=== PATIENT | female | born 1955 | race Caucasian/White ===

== ENCOUNTER 2019-05-15 01:03 | Inpatient (IN) ==
[2019-05-15] MEDS ORDERED: ALBUTEROL NEB INH ONE (01:35)
[2019-05-15] MEDS ORDERED: SOLU-MEDROL IV ONE (01:35)
[2019-05-15] MEDS ORDERED: PULMICORT INH ONE (01:35)
[2019-05-15] MEDS ORDERED: DUONEB (A & A) INH ONE ×2 (01:35→05:19)
[2019-05-15 02:01] LABS: BASO# 0.03 X1000 (0.0-0.2); BASO% 0.7 % (0.0-0.8); EOS# 0.05 X1000 (0.0-0.7); EOS% 1.2 % (0.0-10.0); HEMATOCRIT 48.3 % (37.0-47.0); HEMOGLOBIN 15.7 g/dL (12.0-16.0); IMM GRAN# 0.01 X1000 (0.0-0.04); IMM GRAN% 0.2 % (0.0-0.5); LYMPH# 0.81 X1000 (1.2-3.4); LYMPH% 19.1 % (20.5-51.1); MCH 28.9 PG (27-31); MCHC 32.5 g/dL (33-37); MONO# 0.42 X1000 (0.11-0.59); MONO% 9.9 % (1.7-9.3); MPV 10.7 FL (7.4-10.4); NEUT# 2.92 X1000 (1.4-6.5); NEUT% 68.9 % (42.2-75.2); PLT 133 X1000 (130-400); RBC 5.43 XMIL (4.2-5.4); RDW 13.6 % (11.5-14.5); WBC 4.24 X1000 (4.8-10.8)
[2019-05-15 02:09] LABS: BE 5.9 mmoll (-3.0-3.0); BLOOD TYPE ARTERIAL; HCO3-(ACT) 29.5 mmoll (20.0-26.0); METHB 0.7 % (0.0-1.5); O2(CT) 21.9 mL/dL (15.0-23.0); O2HB 95.7 % (95.0-99.0); PO2(98.6) 169 mmHg (60-100); SAMPLE BLOOD; SAO2 97.5 % (95.0-100.0); THB 16.1 g/dL (11.5-17.4); pH(98.6) 7.39 (7.35-7.45)
[2019-05-15 02:14] LABS: ALLEN TEST YES; MODALITY CANNULA; PCO2(98.6) 54 mmHg (35-45)
[2019-05-15 02:45] LABS: AGAP 11; ALBUMIN 4.6 g/dL (3.5-5.0); ALKALINE PHOSPHATASE 99 U/L (32-104); BUN 16 mg/dL (8-22); CALCIUM 9.3 mg/dL (8.8-10.2); CHLORIDE 101 mmol/L (98-107); COSMO 285; CREATININE 0.6 mg/dL (0.5-0.9); ESTIMATED GFR > 60; GLUCOSE 139 mg/dL (70-104); GOT 16 U/L (10-30); GPT 13 U/L (10-36); POTASSIUM 3.9 mmol/L (3.5-5.1); SODIUM 141 mmol/L (136-145); TCO2 29 mmol/L (25-35); TOTAL PROTEIN 6.9 g/dL (6.3-8.3)
--- NOTE | 2019-05-15 04:35 | PROVIDER DOCUMENTATION ---
This chart was entered by Gabriela Cisneros Scribe, acting as scribe for Anirudh Fairchild MD. HPI-Respiratory General - General Chief Complaint: Cold Symptoms Stated Complaint: CHEST CONGESTION/COUGH Time Seen by Provider: 05/15/19 01:24 Allergies/Adverse Reactions: Patient Allergies Allergy/AdvReac Type Severity Reaction Status Date / Time adhesive tape AdvReac RASH Verified 05/15/19 01:18 - History of Present Illness-Resp Nature of Presenting Problem: Pt is a 63 yof who presents to the ED with a CC of SOB, Cough, Sore throat, and runny nose. Pt reports coughing up phlegm. Pt states that her symptoms began 3 days ago. Pt reports having a previous heart attack. Pt denies taking her heart medication. Pt is a current smoker. Pt reports fever, sore throat, and headache. Pt states that she vomited 1x 3 days ago. Pt reports lower back pain and diarrhea. Quality of Pain: reports: other (congestion) Severity in ED: reports: mild Onset/Duration: reports: 3 days ago Timing: reports: still present Exposure: reports: unknown cause Cough Quality/Degree: reports: mild Episode Frequency: occasional episodes Current Respiratory Medication Therapy: Initiated none Modifying Factors: improves with: nothing Associated Symptoms: reports: cough, dizziness, headache, shortness of breath, sore throat, wheezing Similar Symptoms Previously?: No Recently seen or treated by another doctor?: No Review of Systems - Adult - REVIEW OF SYSTEMS - ADULT Constitutional: reports: see HPI, fever Eyes: reports: no symptoms reported Ears, Nose, Mouth & Throat: reports: see HPI Cardiovascular: reports: no symptoms reported Respiratory: reports: see HPI, cough, shortness of breath Gastrointestinal: reports: see HPI, diarrhea, nausea, vomiting Genitourinary: reports: no symptoms reported Musculoskeletal: reports: no symptoms reported Integumentary: reports: no symptoms reported Neurological: reports: no symptoms reported Psychiatric: reports: no symptoms reported Endocrine: reports: no symptoms reported Hematologic/Lymphatic: reports: no symptoms reported Allergic/Immunologic: reports: no symptoms reported All Other Systems: Reviewed and Negative Past History - Adult - PAST MEDICAL HISTORY-ADULT Review of Records: reports: Old Records Reviewed, Nursing Assessment Review, Medications Reviewed, Social history reviewed & non-contributory. Major Childhood Illnesses: reports: denies history Cardiovascular: reports: HTN, VT (x2) Respiratory: reports: COPD Gastrointestinal: reports: denies history Obstetrical/Gynecological: reports: denies history Genitourinary: reports: denies history Musculoskeletal: reports: denies history Neurological: reports: denies history Endocrine/Immune: reports: denies history Other Conditions: reports: denies history - PRIOR SURGERIES/PROCEDURES Surgical/Procedure History: reports: appendectomy, hysterectomy, other (stents, gastric bypass) - FAMILY HISTORY Family History: reviewed, not pertinent - SOCIAL HISTORY Smoking: cigarettes, greater than 1 pack/day Provider spent 3-5 mins advising pt. on dangers of tobacco.: Discussed manners to quit use, and f/u contacts for add'l counseling. Substance Use: denies Living Situation: family Physical Exam-General - PHYSICAL EXAM-ADULT Initial Vital Signs Reviewed: Yes - CONSTITUTIONAL General Appearance: alert, no apparent distress - EYES Eyes: PERRL/EOMI, pink conjunctivae. negative: sclera injected, scleral icterus, sunken eyes - HEAD, EARS, NOSE, MOUTH & THROAT HENMT: normocephalic/atraumatic, moist mucous membranes - NECK Neck: non-tender, full range of motion, supple, normal inspection - RESPIRATORY Respiratory: chest non-tender, decreased breath sounds, crackles (mild, in all benz), wheezing (inspiratory and expiratory in all benz). negative: normal breath sounds - CARDIOVASCULAR Cardiovascular: normal peripheral pulses, regular rate, rhythm - GASTROINTESTINAL (ABDOMEN) Abdominal Exam: normal bowel sounds, non tender, soft. negative: guarding, tenderness - MUSCULOSKELETAL Back Exam: normal inspection Extremity: non-tender, normal inspection, other (1 + pretibial edema bilateral) - SKIN Integumentary: normal color, normal turgor, warm/dry. negative: ecchymosis, erythema - PSYCHIATRIC Psych/Mental Status: normal mood/affect, normal thought content, normal thought process, oriented x 3 Progress - PLAN OF CARE/RESULTS Progress/Plan/Lab Results: Vital Signs - 8 hr 05/15/19 01:11 05/15/19 01:50 05/15/19 03:07 Temperature 97.5 F L Pulse Rate 89 97 H 99 H Respiratory Rate 18 20 24 Blood Pressure 150/80 150/83 O2 Sat by Pulse Oximetry 84 L 96 90 L Laboratory Results - last 24 hr 05/15/19 05/15/19 05/15/19 01:45 01:45 01:45 WBC 4.24 L RBC 5.43 H Hgb 15.7 Hct 48.3 H MCV 89.0 MCH 28.9 MCHC 32.5 L RDW Std Deviation 13.6 Plt Count 133 MPV 10.7 H Immature Gran % (Auto) 0.2 Neut % (Auto) 68.9 Lymph % (Auto) 19.1 L [place] % (Auto) 9.9 H Eos % (Auto) 1.2 Baso % (Auto) 0.7 Immature Gran # (Auto) 0.01 Neut # (Auto) 2.92 Lymph # (Auto) 0.81 L [place] # (Auto) 0.42 Eos # (Auto) 0.05 Baso # (Auto) 0.03 Specimen Type Sample Site pH pCO2 pO2 HCO3 Base Excess Oxyhemoglobin ABG O2 Sat (Calculated) ABG O2 Saturation ABG Carboxyhemoglobin ABG Methemoglobin Bi Test A-a O2 Difference Total Hemoglobin Lactate Liter Flow Blood Gas Modality FiO2 % Sodium 141 Potassium 3.9 Chloride 101 Carbon Dioxide 29 Anion Gap 11 BUN 16 Creatinine 0.6 Estimated GFR/1.73 m2 > 60 BUN/Creatinine Ratio 27 Glucose 139 H Calculated Osmolality 285 Calcium 9.3 Total Bilirubin 0.60 AST 16 ALT 13 Alkaline Phosphatase 99 Tle-Z-Jaqhyypczwo Pept 459 H Total Protein 6.9 Albumin 4.6 Globulin 2.0 Albumin/Globulin Ratio 2.0 05/15/19 01:47 WBC RBC Hgb Hct MCV MCH MCHC RDW Std Deviation Plt Count MPV Immature Gran % (Auto) Neut % (Auto) Lymph % (Auto) [place] % (Auto) Eos % (Auto) Baso % (Auto) Immature Gran # (Auto) Neut # (Auto) Lymph # (Auto) [place] # (Auto) Eos # (Auto) Baso # (Auto) Specimen Type ARTERIAL Sample Site R RADIAL pH 7.39 pCO2 54 H* pO2 169 H HCO3 29.5 H Base Excess 5.9 H Oxyhemoglobin 95.7 ABG O2 Sat (Calculated) 21.9 ABG O2 Saturation 97.5 ABG Carboxyhemoglobin 1.10 ABG Methemoglobin 0.7 Bi Test YES A-a O2 Difference -8.0 Total Hemoglobin 16.1 Lactate 0.50 Liter Flow 3.0 Blood Gas Modality CANNULA FiO2 % 32.0 Sodium Potassium Chloride Carbon Dioxide Anion Gap BUN Creatinine Estimated GFR/1.73 m2 BUN/Creatinine Ratio Glucose Calculated Osmolality Calcium Total Bilirubin AST ALT Alkaline Phosphatase [id number] Pept Total Protein Albumin Globulin Albumin/Globulin Ratio Orders Category Date Time Status Nursing- Obtain EKG ONCE Care 05/15/19 01:35 Active CHEST-2 VIEWS [RAD] Stat Exams 05/15/19 02:16 Taken ABG [RESP] Routine Lab 05/15/19 01:47 Completed CBC WITH DIFF [HEME] Stat Lab 05/15/19 01:45 Completed COMPREHENSIVE METABOLIC PANEL [CHEM] Stat Lab 05/15/19 01:45 Completed PRO B-NATRIURETIC PEPTIDE Stat Lab 05/15/19 01:45 Completed Albuterol 2.5MG/Ipratrop 0.5MG [Duoneb (A & A)] Med 05/15/19 01:35 Discontinued 3 ml INH NOW ONE Albuterol [Albuterol Neb] Med 05/15/19 01:35 Discontinued 5 mg INH NOW ONE Budesonide [Pulmicort] Med 05/15/19 01:35 Discontinued 0.5 mg INH NOW ONE Methylprednisolone Sod Succ [Solu-Medrol] Med 05/15/19 01:35 Discontinued 125 mg IV NOW ONE Aerosol Treatments Routine Oth 05/15/19 01:36 Completed Aerosol Treatments Stat Oth 05/15/19 01:36 Completed EKG [EKG] Stat Ther 05/15/19 01:34 Ordered Result Diagrams: 05/15/19 01:45 05/15/19 01:45 - EKG 1 Time of EKG reading by physician:: 01:52 EKG Read and Signed by:: Anirudh Fairchild EKG Interpretation (*Must complete 3 of following elements*): Abnormal (rate- 85 Sinus rhythm with marked sinus arrhythmia with occasional premature ventricular complexes Possible Left atrial enlargment Borderline ECG) - XRAY 1 XRAY Study: Chest Impression: Abnormal (COPD) - CONSULTS/PCP/HOSPITALIST Notification #1 *Consult/PCP/Hospitalist*: [place] Time Discussed: 03:40 Consult Disposition: Admit Departure - Departure Date of Disposition Decision: 05/15/19 Time of Disposition Decision: 03:37 DIAGNOSIS: COPD exacerbation, Hypoxia, Tobacco use disorder, continuous, Noncompliance with medication regimen Disposition: ADMITTED INPATIENT 09 Certified Medical Emergency: Emergent Condition: Good Referrals and Follow-Ups: Antelmo Ramírez [Primary Care Provider] - - Critical Care Note This patient required my direct & personal management of CC.: No Attestation - Physician/ ANGELA Attestation Patient care was provided by Advanced Practice Provider:: No The physician spent face to face time with patient:: Yes Advanced Practice Provider documentation review:: Supervising physician onsite and consulted in the evaluation and care of this patient. The physician did have a face to face encounter with the patient. This chart was documented by the indicated scribe, (Gabriela Cisneros Scribe) and accurately reflects the services I performed and decisions made by me, Anirudh Fairchild MD, as attested by the provider's signature.
[2019-05-15] MEDS ORDERED: ZOFRAN IV PRN (04:37)
[2019-05-15] MEDS ORDERED: NS 1,000 ML IV ONE (04:37)
[2019-05-15] MEDS ORDERED: NICODERM PATCH TD ONE (04:37)
--- NOTE | 2019-05-15 06:56 | Diag Imaging Result Doc PS360 ---
CHEST-2 VIEWS - 05/15/2019 INDICATION: dyspnea COMPARISON: None FINDINGS: The lungs are normally expanded and clear. Heart size and mediastinal contours are normal. No pneumothorax or pleural effusion. IMPRESSION: Negative exam. Electronically signed by Grayson Waller 05/15/2019 6:54 AM
[2019-05-15] MEDS: REQUIP PO SCH ×3 (07:52→21:00)
--- NOTE | 2019-05-15 07:55 | EKG Report ---
Test Performed on : 05/15/2019 01:48:40 AM Test Reason : CP Blood Pressure : / mmHG Vent. Rate : 085 BPM Atrial Rate : 085 BPM P-R Int : 154 ms QRS Dur : 076 ms QT Int : 386 ms P-R-T Axes : 085 043 068 degrees QTc Int : 459 ms Sinus rhythm. with marked sinus arrhythmia. with occasional premature ventricular complexes. Possible Left atrial enlargement Borderline ECG No previous ECGs available Unconfirmed Result
[2019-05-15] MEDS ORDERED: SOLU-MEDROL IV SCH (08:00)
[2019-05-15] MEDS: DUONEB (A & A) INH SCH ×5 (08:13→22:43)
[2019-05-15] MEDS: TYLENOL PO PRN ×2 (09:47→23:26)
[2019-05-15] MEDS ORDERED: FIORICET PO ONE (12:00)
--- NOTE | 2019-05-15 13:34 | HISTORY AND PHYSICAL ---
CHIEF COMPLAINT: Shortness of breath. HISTORY OF PRESENT ILLNESS: This is a 63-year-old female who came in from home with a several-day history of shortness of breath. She has had a cough which is intermittently productive of yellowish sputum. She reports subjective fevers. She has had URI symptoms for about the last 3 or 4 days, sinus congestion. Her shortness of breath got so severe she just came to the ER for evaluation. She actually lives in [place] but she works at the local [employer] and she just felt so bad, she came in for evaluation. Yesterday, she got so lightheaded and dizzy, and palpitations, that she had to get evaluated. No gonzalez chest pain. Workup in the ER revealed hypoxia. She is not on home oxygen. Her triage saturation was 84% on room air, requiring 3 L to get it to 96. She was afebrile. Her chest x-ray was reported as clear. Again, admitted for COPD exacerbation, hypoxic respiratory failure. PAST MEDICAL HISTORY: 1. No diabetes currently. She was diabetic. 2. Hypertension. 3. COPD. 4. CAD, status post NC x2, one in 2003 and then 2013. PAST SURGICAL HISTORY: 1. She has had PCI x2. 2. Hysterectomy. 3. Appendectomy. 4. section. 5. Gastric bypass which was around 2006. SOCIAL HISTORY: No alcohol. She is a pack-a-day smoker up until about 3 days ago and 40 years, so 40 pack years. She is . She has moved down from [place] about 5 years ago. FAMILY HISTORY: Brother to throat cancer this year. Father with CAD, at 48. ALLERGIES: Allergic to adhesive tape. MEDICATIONS: She takes Requip 2 at bedtime and 1 in the morning. It does not look like she really takes any breathing treatments or at least nothing is reported. REVIEW OF SYSTEMS: She has had some anorexia for the last 2 days, nausea and vomiting about 3 days ago, diarrhea about 2 days ago. No hematochezia. No melena. She had recent UTI but no current dysuria. No syncope. No paresthesias. No thyromegaly. No thyroid issues. Otherwise negative x10 point review of systems except as outlined in the HPI. PHYSICAL EXAMINATION: VITAL SIGNS: Blood pressure is 122/85, pulse of 86, respiratory rate of 22, temperature 97.2 degrees, 97% on 3 L. CARDIOVASCULAR: Regular rate and rhythm. PULMONARY: She had rhonchi at the bases, more on the right than the left. Some mild end- expiratory wheezes. GI: Soft, nontender, nondistended. NEUROLOGIC: Nonfocal examination. MUSCULOSKELETAL EXAMINATION: Was 4-5 in all 4 extremities. HEENT: Eye exam: Pupils equal, round, reactive to light. Extraocular movements were intact. Sclerae were anicteric. Oropharynx: Moist, clear. SKIN: Unremarkable. No rashes, lesions noted. LABORATORY DATA: White count 4, hemoglobin and hematocrit 15 and 48, platelets of 133,000. PH of 7.39, pCO2 of 54, PaO2 of 169. Basic was normal. ProBNP mildly elevated at 459. Chest x-ray was normal. ASSESSMENT: This is a 63-year-old female with chronic obstructive pulmonary disease and cardiac history who presents with shortness of breath, most consistent with an acute bronchitis and chronic obstructive pulmonary disease exacerbation. 1. Chronic obstructive pulmonary disease exacerbation. We will continue empiric breathing treatments. We will continue steroids. I am going to add Rocephin because she does have a productive sputum and we will follow clinically. 2. Coronary artery disease history. It does not look like she has really been followed. She should probably at least be on an aspirin. We will repeat 1 set of enzymes and start aspirin, and go from there. Check her lipids, see if she needs to be put on a statin. 3. Tobacco abuse. We advised at length about tobacco cessation. She did not want to try Chantix. She was okay trying Wellbutrin. That could be something we could initiate prior to discharge. DISPOSITION: Pending her clinical status but anticipate she will be here for a couple days. She will need to be set up with a jewelry racker as well. The patient sees a physician in [place]. cc: Himanshu Whelan MD
[2019-05-15] MEDS: ROCEPHIN 1 GM in NS 50 ML IV SCH (14:57)
[2019-05-15] MEDS: ASPIRIN EC PO SCH (14:57)
[2019-05-15] MEDS: SOLU-MEDROL IV SCH (15:59)
[2019-05-15] MEDS: NICODERM PATCH TD PRN (18:05)
[2019-05-16] MEDS: LOVENOX SUBQ SCH (06:01)
[2019-05-16 06:58] LABS: AGAP 8; BUN 16 mg/dL (8-22); CALCIUM 8.9 mg/dL (8.8-10.2); CHLORIDE 102 mmol/L (98-107); COSMO 290; CREATININE 0.6 mg/dL (0.5-0.9); ESTIMATED GFR > 60; GLUCOSE 228 mg/dL (70-104); POTASSIUM 4.1 mmol/L (3.5-5.1); SODIUM 141 mmol/L (136-145); TCO2 31 mmol/L (25-35)
[2019-05-16 06:59] LABS: BASO# 0.01 X1000 (0.0-0.2); BASO% 0.1 % (0.0-0.8); HEMATOCRIT 43.6 % (37.0-47.0); HEMOGLOBIN 13.8 g/dL (12.0-16.0); IMM GRAN# 0.02 X1000 (0.0-0.04); IMM GRAN% 0.2 % (0.0-0.5); LYMPH# 0.29 X1000 (1.2-3.4); LYMPH% 3.4 % (20.5-51.1); MCH 28.5 PG (27-31); MCHC 31.7 g/dL (33-37); MCV 89.9 FL (81-99); MONO# 0.19 X1000 (0.11-0.59); MONO% 2.2 % (1.7-9.3); MPV 11.2 FL (7.4-10.4); NEUT# 7.99 X1000 (1.4-6.5); NEUT% 94.1 % (42.2-75.2); PLT 126 X1000 (130-400); RBC 4.85 XMIL (4.2-5.4); RDW 13.5 % (11.5-14.5)
--- NOTE | 2019-05-16 07:22 | Diag Imaging Result Doc PS360 ---
EXAM: CHEST-2 VIEWS HISTORY: hypoxia TECHNIQUE: Two views COMPARISON: 05/15/2019 FINDINGS: The lungs are hyperexpanded with an increased AP diameter to the chest. The pulmonary vessels are small. No cardiomegaly. Mild increased interstitial markings in the left costophrenic angle and mid left lung. No pleural effusions. IMPRESSION: 1.Emphysema 2.Left lower lung atelectasis versus small infiltrates Electronically signed by Franklin Gudino 05/16/2019 7:20 AM
[2019-05-16 07:26] LABS: LYMPHS 4 % (21-51); MONO 2 % (1-9); SEGS 94 % (42-75)
[2019-05-16] MEDS: DUONEB (A & A) INH SCH ×5 (07:38→23:08)
[2019-05-16] MEDS: ASPIRIN EC PO SCH (08:35)
[2019-05-16] MEDS: REQUIP PO SCH ×3 (08:35→21:56)
[2019-05-16] MEDS: SOLU-MEDROL IV SCH ×4 (08:35→23:02)
--- NOTE | 2019-05-16 09:01 | ECHO REPORT ---
ORDER DATE: 05/15/2019 INTERPRETING PHYSICIAN: Paco Zurita MD. CLINICAL INDICATIONS: A 63-year-old female, possible stroke. M-MODE MEASUREMENTS: Left ventricle end diastole: 4.8 cm. Left ventricle end systole: 4.0 cm. Posterior wall: 1.1 cm. Interventricular septum: 1.1 cm. Left atrium: 3.8 cm. Aortic diameter: 2.8 cm. SUMMARY OF 2-DIMENSIONAL IMAGIN. Left ventricular function is normal, ejection fraction of 63%. There is no definite wall motion abnormality. 2. The mitral valve shows some nonspecific thickening. Color flow mapping of mitral valve is unremarkable. There is a trivial degree of regurgitation. 3. The pulse wave Doppler of mitral inflow shows reversal of the E/A ratio, ratio of 0.6. 4. Tissue Doppler of septal and lateral mitral annulus averages 4 cm. There is impaired left ventricular relaxation. 5. Aortic valve has 3 cusps, they open normally. Color flow mapping unremarkable. 6. Tricuspid valve shows trace regurgitation. 7. Pulmonary pressure estimated at 29 mmHg. 8. The inferior vena cava is not dilated. 9. Pulmonic valve appears to be grossly normal. 10.The atria appear to be at the upper limits of normal to mildly enlarged. Especially the left atrium. 11.There is no pericardial effusion, masses, or thrombus. 12.The right ventricle appears to be normal. SUMMARY: This study shows: 1. Essentially normal left ventricular systolic function. 2. Impaired left ventricular relaxation. 3. Pulmonary systolic pressure of 29 mmHg. 4. [id number] enlargement of left atrium. No pericardial effusion. Clinical correlation is recommended. cc: MD Himanshu Garcia MD
[2019-05-16] MEDS: FIORICET PO PRN ×3 (12:15→21:56)
[2019-05-16] MEDS: ROCEPHIN 1 GM in NS 50 ML IV SCH (14:53)
--- NOTE | 2019-05-16 18:10 | PROGRESS NOTE ---
DATE: 05/16/2019 SUBJECTIVE: Patient notes that she is still having some shortness of breath, coughing, and congestion, but overall states that she is feeling better. OBJECTIVE: Temperature 97.4, pulse 75, respiratory rate 18, BP 141/85.General: Patient is awake, currently in no respiratory distress. HEENT: Normocephalic. Neck: Supple. Cardiovascular: Regular rate. Chest: Clear. Abdomen: Soft. Extremities: Moves all extremities. ASSESSMENT: 1. Chronic obstructive pulmonary disease with exacerbation. 2. Known coronary artery disease. 3. Chronic tobacco abuse. 4. Hyperglycemia. PLAN: We will continue patient in the hospital. Continue breathing treatments and steroids. Continue antibiotics. Hopefully, she can continue to improve. Further orders as needed. cc: Axel Calvert MD
[2019-05-16] MEDS: NICODERM PATCH TD PRN (21:57)
[2019-05-17] MEDS: FIORICET PO PRN ×3 (02:59→21:46)
[2019-05-17] MEDS: LOVENOX SUBQ SCH (06:40)
[2019-05-17] MEDS: DUONEB (A & A) INH SCH ×5 (07:56→23:59)
[2019-05-17] MEDS: REQUIP PO SCH ×2 (08:56→21:41)
[2019-05-17] MEDS: SOLU-MEDROL IV SCH ×3 (08:56→23:47)
[2019-05-17] MEDS: ASPIRIN EC PO SCH (08:56)
[2019-05-17] MEDS: ROCEPHIN 1 GM in NS 50 ML IV SCH (15:40)
[2019-05-17] MEDS: SENOKOT PO PRN (17:53)
--- NOTE | 2019-05-17 21:14 | PROGRESS NOTE ---
DATE: 05/17/2019 SUBJECTIVE: Patient notes that her breathing is better, although she is still having shortness of breath, still coughing, still having difficulty with ambulation. PHYSICAL EXAMINATION: Temperature 97.9, pulse 81, respiratory rate 18, BP 125/63.General: Patient is very pleasant. She is in mild respiratory distress. HEENT: Normocephalic. Neck: Supple. Cardiovascular: Regular rate. chest: Decreased but equal breath sounds. Minimal wheezing bilaterally. Poor air movement, but equal bilaterally. Positive rhonchi. No crackles. Abdomen: Soft, nondistended, nontender. Extremities: Moves all extremities. Neurologic: No focal changes. She is awake, alert, oriented x3. Skin: Warm, dry. No rashes. ASSESSMENT: 1. Hyperglycemia. 2. Chronic tobacco abuse. 3. Known coronary artery disease. 4. Chronic obstructive pulmonary disease with exacerbation. PLAN: We are going to decrease Solu-Medrol to 40 IV q.8, continue to follow her blood sugars. Hopefully, she can improve and be discharged over the next 2 or 3 days. We will continue counseling about chronic tobacco abuse. cc: Axel Calvert MD
[2019-05-17] MEDS: NICODERM PATCH TD PRN (21:46)
[2019-05-18] MEDS: FIORICET PO PRN (05:55)
[2019-05-18] MEDS: LOVENOX SUBQ SCH (05:56)
[2019-05-18] MEDS: DUONEB (A & A) INH SCH ×5 (08:10→22:59)
[2019-05-18] MEDS: NORCO-5 PO PRN (10:10)
[2019-05-18] MEDS: ASPIRIN EC PO SCH (10:10)
[2019-05-18] MEDS: SOLU-MEDROL IV SCH (12:50)
[2019-05-18] MEDS: ROCEPHIN 1 GM in NS 50 ML IV SCH (15:06)
[2019-05-18] MEDS: NICODERM PATCH TD PRN (21:14)
[2019-05-18] MEDS: REQUIP PO SCH (21:14)
[2019-05-18] MEDS: SENOKOT PO PRN (21:15)
--- NOTE | 2019-05-18 22:12 | PROGRESS NOTE ---
DATE: 05/18/2019 SUBJECTIVE: Patient notes that although she is feeling better, she is still having lots of coughing and shortness of breath. Still gets very tired with sitting up. She is having difficulty ambulating. PHYSICAL EXAMINATION: Vital Signs: Reviewed. Temperature 97 degrees, pulse 77, respiratory rate 18, BP 133/77. General: Patient is pleasant. She is in mild respiratory distress. HEENT: Normocephalic. Neck: Supple. Cardiovascular: Regular rate. Chest: Decreased, but equal breath sounds. No current crackles, no wheezing. Abdomen: Soft nondistended. Extremities: Moves all extremities. ASSESSMENT: 1. Chronic obstructive pulmonary disease, with exacerbation. 2. Known coronary artery disease. 3. Chronic tobacco abuse. 4. Hyperglycemia. PLAN: We will continue to follow patient. Will decrease Solu-Medrol very slowly. Continue breathing treatments and oxygen. Hopefully, she can discharge home over the next 2 or 3 days if her symptoms will improve. cc: Axel Calvert MD
[2019-05-19] MEDS: SOLU-MEDROL IV SCH ×2 (00:15→11:50)
[2019-05-19] MEDS: FIORICET PO PRN ×3 (00:15→13:31)
[2019-05-19] MEDS: LOVENOX SUBQ SCH (05:34)
[2019-05-19] MEDS: DUONEB (A & A) INH SCH ×5 (07:17→23:20)
[2019-05-19] MEDS: ASPIRIN EC PO SCH (08:07)
[2019-05-19] MEDS: ROCEPHIN 1 GM in NS 50 ML IV SCH (13:31)
--- NOTE | 2019-05-19 17:19 | PROGRESS NOTE ---
DATE: 05/19/2019 SUBJECTIVE: The patient notes that she is starting to feel better, but she is still having a headache. Still having lots of cough and congestion, still having lots of shortness of breath. Still having difficulty ambulating in the hospital room. OBJECTIVE: Temperature 98 degrees, pulse 76, respiratory rate 20, BP 146/85.General: The patient is awake, currently in mild respiratory distress. HEENT: Normocephalic. Neck supple. Cardiovascular: Regular rate. Chest clear, nonlabored. Abdomen: Soft, nondistended. Extremities: Moves all extremities. ASSESSMENT: 1. Hypertension. 2. Chronic obstructive pulmonary disease with exacerbation. 3. Known coronary artery disease. 4. Hyperglycemia. 5. Tobacco abuse. PLAN: The patient's lung exam continues to slowly improve. We are going to continue to wean her Solu-Medrol. Continue antibiotics, breathing treatments. We will attempt to wean her off oxygen. She is not typically on oxygen at home but is currently requiring it here. Further orders as needed. Hopefully can discharge over the next 2 or 3 days. cc: Axel Calvert MD
[2019-05-19] MEDS: REQUIP PO PRN (17:25)
[2019-05-19] MEDS: REQUIP PO SCH (22:14)
[2019-05-19] MEDS: SENOKOT PO PRN (22:14)
[2019-05-19] MEDS: NICODERM PATCH TD PRN (22:15)
[2019-05-20] MEDS: FIORICET PO PRN ×2 (00:30→21:06)
[2019-05-20] MEDS: SOLU-MEDROL IV SCH ×3 (00:30→16:49)
[2019-05-20] MEDS: LOVENOX SUBQ SCH (06:16)
[2019-05-20] MEDS: DUONEB (A & A) INH SCH ×5 (07:13→23:18)
--- NOTE | 2019-05-20 09:25 | Diag Imaging Result Doc PS360 ---
CHEST-2 VIEWS - 05/20/2019 INDICATION: hypoxia COMPARISON: 05/16/2019 FINDINGS: The lungs are normally expanded and clear. Heart size and mediastinal contours are normal. No pneumothorax or pleural effusion. IMPRESSION: Negative exam. Electronically signed by Grayson Waller 05/20/2019 9:23 AM
[2019-05-20] MEDS: ASPIRIN EC PO SCH (09:55)
[2019-05-20] MEDS: ROCEPHIN 1 GM in NS 50 ML IV SCH (14:00)
--- NOTE | 2019-05-20 20:02 | PROGRESS NOTE ---
DATE: 05/20/2019 SUBJECTIVE: Patient notes that she is feeling tremendously better. She is lying in bed. However, states she attempted to get up and get to the restroom from the bed closest to the restroom and almost did not make it. The patient is having lots of fatigue and shortness of breath. PHYSICAL EXAMINATION: Temp 97.9, pulse 77, respiratory rate 18, BP 115/56, sat 92% on 3 L.General: Patient is awake, very pleasant. Her color actually is improved. HEENT: Normocephalic. Neck: Supple. Cardiovascular: Regular rate. Chest: Decreased but equal breath sounds. Minimal wheezing. Minimally labored as long as she is lying flat. Abdomen: Soft, nondistended, nontender. Extremities: Moves all extremities. Neurologic: No changes. ASSESSMENT: 1. Acute hypoxic respiratory failure. 2. COPD with exacerbation. 3. Known coronary artery disease. 4. Leukocytosis. 5. Chronic tobacco abuse. PLAN: We will continue patient in the hospital, continue breathing treatments, oxygen, steroids. We are actually going to increase her steroids today as she has had increasing oxygen need. I expect this is more due to ambulation, but we will follow. cc: Axel Calvert MD
[2019-05-20] MEDS: REQUIP PO SCH (21:06)
[2019-05-20] MEDS: NICODERM PATCH TD PRN (23:58)
[2019-05-21] MEDS: FIORICET PO PRN ×2 (06:25→20:56)
[2019-05-21] MEDS: LOVENOX SUBQ SCH (06:26)
[2019-05-21] MEDS: DUONEB (A & A) INH SCH ×5 (07:08→22:56)
[2019-05-21] MEDS: SOLU-MEDROL IV SCH ×3 (09:14→20:57)
[2019-05-21] MEDS: ASPIRIN EC PO SCH (09:15)
[2019-05-21 10:13] LABS: HEMATOCRIT 48.6 % (37.0-47.0); HEMOGLOBIN 15.5 g/dL (12.0-16.0); MCH 28.5 PG (27-31); MCHC 31.9 g/dL (33-37); MCV 89.3 FL (81-99); MPV 11.2 FL (7.4-10.4); RBC 5.44 XMIL (4.2-5.4); RDW 13.5 % (11.5-14.5); WBC 8.06 X1000 (4.8-10.8)
[2019-05-21 10:35] LABS: AGAP 10; BUN 18 mg/dL (8-22); CALCIUM 9.1 mg/dL (8.8-10.2); CHLORIDE 98 mmol/L (98-107); COSMO 283; CREATININE 0.6 mg/dL (0.5-0.9); ESTIMATED GFR > 60; GLUCOSE 171 mg/dL (70-104); POTASSIUM 4.2 mmol/L (3.5-5.1); SODIUM 139 mmol/L (136-145); TCO2 31 mmol/L (25-35)
[2019-05-21] MEDS: ROCEPHIN 1 GM in NS 50 ML IV SCH (12:59)
[2019-05-21] MEDS: REQUIP PO PRN (16:04)
--- NOTE | 2019-05-21 19:29 | PROGRESS NOTE ---
DATE: 05/21/2019 SUBJECTIVE: Patient notes that she is starting to feel better each day. She is still having significant cough and congestion. States she is still having significant shortness of breath, but this is improving every day. Denies any fevers or chills. PHYSICAL EXAMINATION: Temp 98.3, pulse 65, respiratory rate 18, BP 129/69.General: Patient is in no current respiratory distress. HEENT: Normocephalic. Neck: Supple. Cardiovascular: Regular rate. Chest: Clear. Abdomen: Soft. Extremities: Moves all extremities. ASSESSMENT: 1. Chronic obstructive pulmonary disease with exacerbation. 2. Hypoxic respiratory failure. 3. Known coronary artery disease. 4. Chronic tobacco abuse. PLAN: We will continue patient in the hospital. Continue to follow. Further orders as needed. cc: Axel Calvert MD
[2019-05-21] MEDS: REQUIP PO SCH (20:56)
[2019-05-21] MEDS: NICODERM PATCH TD PRN (21:02)
[2019-05-22] MEDS: LOVENOX SUBQ SCH (05:24)
[2019-05-22] MEDS: DUONEB (A & A) INH SCH ×5 (07:35→23:06)
[2019-05-22] MEDS: ASPIRIN EC PO SCH (10:47)
[2019-05-22] MEDS: SOLU-MEDROL IV SCH ×2 (10:47→21:05)
[2019-05-22] MEDS: REQUIP PO PRN (14:45)
[2019-05-22] MEDS: ROCEPHIN 1 GM in NS 50 ML IV SCH (14:46)
[2019-05-22] MEDS: NICODERM PATCH TD PRN (21:00)
[2019-05-22] MEDS: FIORICET PO PRN (21:00)
[2019-05-22] MEDS: REQUIP PO SCH (21:00)
--- NOTE | 2019-05-22 21:48 | PROGRESS NOTE ---
DATE: 05/22/2019 SUBJECTIVE: The patient notes that she is feeling tremendously better this morning. Still very hesitant about going home. Still having increased work of breathing, moving back and forth. Still currently on oxygen. PHYSICAL EXAM: Vital signs: Temperature 98.3, pulse 68, blood pressure 129/69. General: Patient is in no current respiratory distress. Very pleasant to talk with. HEENT: Normocephalic. Neck: Supple. Cardiovascular: Regular rate. Chest: Much improved. No current wheezing. Minimal accessory muscle use. Abdomen: Soft, nondistended. Extremities: Moves all extremities. ASSESSMENT: 1. Acute hypoxic respiratory failure. 2. Chronic obstructive pulmonary disease with exacerbation. 3. Known coronary artery disease. 4. Chronic tobacco abuse. 5. Hyperglycemia. PLAN: We have decreased her Solu-Medrol. We are going to watch her today off of oxygen. If she does not require oxygen overnight, she can be discharged home in the a.m. cc: Axel Calvert MD
[2019-05-22 22:14] VITALS: BP 131/61
[2019-05-22] MEDS: NORCO-5 PO PRN (23:39)
[2019-05-23] MEDS: FIORICET PO PRN (03:32)
[2019-05-23] MEDS: LOVENOX SUBQ SCH (05:22)
[2019-05-23] MEDS: DUONEB (A & A) INH SCH ×3 (07:30→14:49)
[2019-05-23] MEDS: SOLU-MEDROL IV SCH (08:34)
[2019-05-23] MEDS: ASPIRIN EC PO SCH (08:34)
--- NOTE | 2019-05-24 10:02 | DISCHARGE SUMMARY ---
ADMISSION DATE: 05/15/2019 DISCHARGE DATE: 05/23/2019 ADMISSION DIAGNOSES: 1. Chronic obstructive pulmonary disease exacerbation with hypoxia. 2. Coronary artery disease history. 3. Tobacco abuse. DISCHARGE DIAGNOSES: 1. Acute hypoxemic respiratory failure. 2. Chronic obstructive pulmonary disease with exacerbation. 3. Known coronary artery disease. 4. Chronic tobacco abuse. 5. Hyperglycemia. CONSULTATIONS: None. SURGERIES AND PROCEDURES: None. HOSPITAL COURSE: Ms. Jeanie Oleary is a 63-year-old female that came in with complaints of several days of progressive shortness of breath along with a cough that produced yellow phlegm. There were subjective fevers reported. Apparently, she had had an upper respiratory infection for about 3 or 4 days with sinus congestion, and shortness of breath had worsened so she came to the emergency department. The day prior to presentation she had gotten get lightheaded and dizzy. She had some palpitations, had hypoxia, but not on home oxygen. Her O2 saturation on room air was 84%. They put on 3 L to get her up to 96% and this was with a history of COPD. She is a pack per day smoker for at least 40+ years. She was started on respiratory treatment, steroids, and Rocephin. She was eventually weaned back down to room air, and saturating around 92% on room air. She will be sent home with aspirin and azithromycin, some nebulizers, steroid dose pack, nicotine patch and some Xanax. DISCHARGE VITAL SIGNS: Temperature 98 degrees, heart rate 105, respiratory rate 16, heart rate 72, and blood pressure 131/61. She had an O2 saturation 97% on 2 L. She is 92% on room air. DISCHARGE LABORATORY DATA: White blood cells 8000, hemoglobin 15, hematocrit 48, and platelet count 152,000. Sodium 139, potassium 4.2, BUN 18, creatinine 0.6. Blood glucose is 171. There was a sputum culture negative for any findings. PERTINENT IMAGIN. Chest x-ray on admission negative on the . Emphysema, left lower lobe atelectasis versus small infiltrate on the negative. 2. Echocardiogram on the . Impaired left ventricular relaxation, and pulmonary systolic pressure is 29 mmHg. There is mild to moderate enlargement of the left atrium. No effusion. 3. EKG: Sinus rhythm, rate 85, and QTc 459. DISCHARGE MEDICATIONS: 1. Requip 1 mg in the morning, 2 mg at night. 2. Aspirin 81 mg p.o. daily. 3. Azithromycin 500 mg p.o. daily. 4. Albuterol and Atrovent nebulizers. 5. Medrol Dosepak. 6. Nicotine patch 21 mg transdermal daily. 7. Xanax 0.5 mg p.o. every 8 hours p.r.n. DISCHARGE DIET: Regular. DISCHARGE ACTIVITY: As tolerated. PHYSICIAN FOLLOWUP: She will need to follow up with the [facility] in about a week. She also probably needs to be set up with a nurse practitioner as an outpatient. DISCHARGE INSTRUCTIONS: Take all medications as prescribed. The shortness of breath, coughing up any colors, dizziness, or lightheadedness, please seek medical attention. DISCHARGE DISPOSITION: Home. Dictated by AMELIA Page for Donte Grewal MD Addendum: Patient seen and examined by myself. Agree with AMELIA note. It reflects my assessment and plan. Patient is being discharged from hospital in stable condition.. Will be seen by her PCP in a week. cc: AMELIA Page MD [facility]
== END 2019-05-23 15:14 | disposition home or self-care (01) | DRG 190 ==
LOC: P.ED 01:03 → P.MEDSURG 01:04 → SUATTDRO 01:04
PROVIDERS: ATTEND Internal Medicine